=== PATIENT | female | born 1995 | race Caucasian/White ===

== ENCOUNTER → 2017-06-21 | Outpatient (REF) ==
[~2017-06-21] MED LIST: DEPO-PROVER150 MG/M1 IM
== END ==
LOC: LDRO 19:04
DX: Z04.41 Encounter for examination and observation following alleged adult rape (principal)

== ENCOUNTER → 2017-06-21 | Outpatient (CLI) | payer BC | LOC: LDRO 19:00 | DX: Z04.41 Encounter for examination and observation following alleged adult rape (principal) | CPT/HCPCS: J0696 ==